=== PATIENT | female | born 1980 | race Caucasian/White ===

== ENCOUNTER 2019-01-10 11:21 | Emergency (ER) | payer SELFPAY ==
[2019-01-10 12:57] LABS: Urine Bacteria <20 /HPF (<20); Urine Culture Reflex Order REFLEXED; Urine RBC <5 /HPF (NONE SEEN)
[2019-01-10 13:23] LABS: Absolute Lymphocytes (CBC) 1.6 K/uL (0.7-4.9); Absolute Monocytes 1.2 K/uL (0.1-1.3); Absolute Neutrophil 6.6 K/uL (1.8-8.0); Basophils % 0.7 % (0-1.3); Eosinophils % 1.9 % (0-4.4); Hematocrit 47.8 % (36.0-45.0); MPV 11.1 fL (7.6-11.3); RBC Red Blood Cell Count 5.08 M/uL (3.86-4.86)
[2019-01-10 13:45] LABS: BUN Blood Urea Nitrogen 7 mg/dL (7-18); Bicarbonate 28 mmol/L (21-32); Glucose Level 91 mg/dL (74-106); Potassium 4.1 mmol/L (3.5-5.1); Sodium Level 138 mmol/L (136-145)
[2019-01-10] MEDS ORDERED: NA CHLORIDE 0.9% 1,000 ML ONE (13:54)
[2019-01-10] MEDS ORDERED: KETOROLAC 30 MG/ML INJ ONE (13:54)
[2019-01-10 14:13] LABS: Urine Blood NEGATIVE (NEG); Urine Glucose NEGATIVE (NEG); Urine Protein NEGATIVE (NEG)
--- NOTE | 2019-01-10 15:23 | RAD REPORT ---
EXAM DESCRIPTION: CT - Abdomen Pelvis W Contrast - 01/10/2019 3:00 pm CLINICAL HISTORY: Abdominal pain, dysuria COMPARISON: CT study August 2016 TECHNIQUE: Biphasic, helical CT imaging of the abdomen and pelvis was performed following 100 ml non -ionic IV contrast. Oral contrast was given. All CT scans are performed using dose optimization technique as appropriate and may include automated exposure control or mA/KV adjustment according to patient size. FINDINGS: No suspicious findings in the lung bases. The liver, spleen, and pancreas show no suspicious findings. Gallbladder and biliary tree are also wi thout suspicious finding. Symmetric renal function is seen with no hydronephrosis or suspicious renal mass. No pyelonephritis o r acute parenchymal process. Urinary bladder is only partially filled which accentuates wall thicknes s. No mass or calculus seen. A mild cystitis cannot be excluded. No adrenal abnormalities. No stomach or small bowel abnormality. Patient does have a few sub centimeter mesenteric lymph nodes. There is a prominent fatty ileocecal valve. The appendix is normal. From cecum through descending co yaz there are no acute findings. Patient has a very prominent sigmoid diverticulosis pattern. Sigmoid or rectal mass are not identified. There is stranding in the lower pelvic fat. High density fluid is present in the cul de sac. This is probably blood. The patient has a 3.8 centimeter left ovarian cys t. Right ovary is unremarkable. No free air or pneumatosis. No other sites of fluid or inflammatory stranding. Very small umbilica l fat only hernia present. No ascites or omental thickening. No bulky lymphadenopathy. No suspicious bony findings. IMPRESSION: Patient has a 3.8 centimeter left ovarian cyst with stranding, fluid and a small amount of blood in the cul-de-sac. Patient has very pronounced for age sigmoid diverticulosis. The fluid, stranding and blood closely ap proximate the distal sigmoid and proximal rectum. Hemorrhagic ovarian cyst rupture or leakage would be favored. Diverticulitis does not typically resul t in intraperitoneal blood. Colon mass is not identified. No pyelonephritis or acute renal parenchymal process. Renal function is prompt and symmetric.
--- NOTE | 2019-01-10 15:37 | EDPHYS ---
Physician Documentation [facility] Name: Veronica Harrington Age: 38 yrs Sex: Female : 1980 Arrival Date: 01/10/2019 Time: 11:24 Bed 16 Private MD: None, None ED Physician Bryan Garza HPI: 01/10 15:34 This 38 yrs old Female presents to ER via Ambulatory with complaints of kb Abdominal Pain, Pain With Urination. 15:34 The patient presents with abdominal pain in the lower abdomen. Onset: The kb symptoms/episode began/occurred today. The symptoms do not radiate. Associated signs and symptoms: none. The symptoms are described as constant. Modifying factors: The symptoms are alleviated by nothing, the symptoms are aggravated by movement. Severity of pain: At its worst the pain was moderate in the emergency department the pain is unchanged. The patient has not experienced similar symptoms in the past. The patient has not recently seen a physician. 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 - Social history:: Smoking status: Patient/guardian denies using tobacco. - Ebola Screening: : No symptoms or risks identified at this time. ROS: 15:33 Constitutional: Negative for fever, chills, and weight loss, Neck: Negative for injury, kb pain, and swelling, Cardiovascular: Negative for chest pain, palpitations, and edema, Respiratory: Negative for shortness of breath, cough, wheezing, and pleuritic chest pain, Back: Negative for injury and pain, : Negative for injury, bleeding, discharge, and swelling, MS/Extremity: Negative for injury and deformity, Skin: Negative for injury, rash, and discoloration, Neuro: Negative for headache, weakness, numbness, tingling, and seizure. 15:33 Abdomen/GI: Positive for abdominal pain. Exam: 15:33 Constitutional: This is a well developed, well nourished patient who is awake, alert, kb and in no acute distress. Head/Face: Normocephalic, atraumatic. ENT: Nares patent. No nasal discharge, no septal abnormalities noted. Tympanic membranes are normal and external auditory canals are clear. Oropharynx with no redness, swelling, or masses, exudates, or evidence of obstruction, uvula midline. Mucous membranes moist. Neck: Trachea midline, no thyromegaly or masses palpated, and no cervical lymphadenopathy. Supple, full range of motion without nuchal rigidity, or vertebral point tenderness. No Meningismus. Chest/axilla: Normal chest wall appearance and motion. Nontender with no deformity. No lesions are appreciated. Cardiovascular: Regular rate and rhythm with a normal S1 and S2. No gallops, murmurs, or rubs. Normal PMI, no JVD. No pulse deficits. Respiratory: Lungs have equal breath sounds bilaterally, clear to auscultation and percussion. No rales, rhonchi or wheezes noted. No increased work of breathing, no retractions or nasal flaring. Back: No spinal tenderness. No costovertebral tenderness. Full range of motion. Skin: Warm, dry with normal turgor. Normal color with no rashes, no lesions, and no evidence of cellulitis. MS/ Extremity: Pulses equal, no cyanosis. Neurovascular intact. Full, normal range of motion. Neuro: Awake and alert, GCS 15, oriented to person, place, time, and situation. Cranial nerves II-XII grossly intact. Motor strength 5/5 in all extremities. Sensory grossly intact. Cerebellar exam normal. Normal gait. 15:33 Abdomen/GI: Inspection: abdomen appears normal, Bowel sounds: normal, in all quadrants, Palpation: soft, in all quadrants, moderate abdominal tenderness, in the right lower quadrant and left lower quadrant. Vital Signs: 11:38 BP 138 / 93; Pulse 88; Resp 16; Temp 97.8; Pulse Ox 100% on R/A; Pain 5/10; hb 12:30 BP 131 / 72; Pulse 91; Resp 17; Pulse Ox 95% ; rb1 13:30 BP 123 / 80; Pulse 83; Resp 19; Pulse Ox 95% on R/A; rb1 14:30 BP 112 / 76; Pulse 67; Resp 16; Pulse Ox 98% on R/A; rb1 15:20 BP 129 / 81; Pulse 65; Resp 17; Pulse Ox 100% on R/A; rb1 16:07 BP 126 / 99; Pulse 67; Resp 17; Pulse Ox 100% ; Pain 2/10; rb1 MDM: 12:25 Patient medically screened. kb 15:33 Data reviewed: vital signs, nurses notes. Data interpreted: Pulse oximetry: on room air kb is 95 %. Interpretation: normal. Counseling: I had a detailed discussion with the patient and/or guardian regarding: the historical points, exam findings, and any diagnostic results supporting the discharge/admit diagnosis, lab results, radiology results, the need for outpatient follow up, an OB/Gyne specialist, to return to the emergency department if symptoms worsen or persist or if there are any questions or concerns that arise at home. 01/10 11:39 Order name: Urine Microscopic Only; Complete Time: 13:00 kb 01/10 12:41 Order name: Basic Metabolic Panel; Complete Time: 13:52 kb 01/10 12:41 Order name: CBC with Diff; Complete Time: 13:28 kb 01/10 12:43 Order name: Urine Dipstick--Ancillary (enter results); Complete Time: 14:14 em 01/10 12:43 Order name: Urine --Ancillary (enter results); Complete Time: 14:14 [facility] 01/10 12:59 Order name: Urine Culture [facility] 01/10 11:39 Order name: Urine Test (obtain specimen); Complete Time: 12:40 kb 01/10 11:39 Order name: Urine Dipstick-Ancillary (obtain specimen); Complete Time: 12:40 kb 01/10 12:41 Order name: IV Saline Lock; Complete Time: 13:38 kb 01/10 12:41 Order name: Labs collected and sent; Complete Time: 13:38 kb 01/10 12:41 Order name: CT Abd/Pelvis - W/Contrast; Complete Time: 15:26 kb Administered Medications: 13:42 Drug: NS 0.9% 1000 ml Route: IV; Rate: 1000 ml; Site: left antecubital; rb1 14:57 Follow up: IV Status: Completed infusion rb1 13:42 Drug: TORadol 30 mg Route: IVP; Site: left antecubital; rb1 14:00 Follow up: Response: No adverse reaction; Pain is decreased rb1 15:47 Drug: Doxycycline 100 mg Route: PO; rb1 16:00 Follow up: Response: No adverse reaction rb1 Disposition: 18:36 Co-signature as Attending Physician, Bryan Garza MD. rn Disposition: 01/10/19 15:36 Discharged to Home. Impression: Other ovarian cysts, Abdominal and pelvic pain. - Condition is Stable. - Discharge Instructions: Pelvic Pain, Female, Attn-sa-Vuyk, Ovarian Cyst, [id number]. - Prescriptions for Doxycycline Hyclate 100 mg Oral Tablet - take 1 tablet by ORAL route every 12 hours; 20 tablet. Diclofenac Sodium 75 mg Oral Tablet, Delayed Release (E.C.) - take 1 tablet by ORAL route 2 times per day As needed; 30 tablet. - Medication Reconciliation Form, Thank You Letter, Antibiotic Education, Prescription Opioid Use form. - Follow up: Emergency Department; When: As needed; Reason: Worsening of condition. Follow up: Private Physician; When: 2 - 3 days; Reason: Recheck today's complaints, Continuance of care, Re-evaluation by your physician. Signatures: Dispatcher [employer] EDMS Sara Childers, TAMRA-C RECOVERY OPERATOR-Bryan Kam MD MD rn Barber, Rebecca, RN RN rb1 Baxter, Heather, RN RN Corrections: (The following items were deleted from the chart) 16:16 15:36 01/10/2019 15:36 Discharged to Home. Impression: Other ovarian cysts; Abdominal rb1 and pelvic pain. Condition is Stable. Forms are Medication Reconciliation Form, Thank You Letter, Antibiotic Education, Prescription Opioid Use. Follow up: Emergency Department; When: As needed; Reason: Worsening of condition. Follow up: Private Physician; When: 2 - 3 days; Reason: Recheck today's complaints, Continuance of care, Re-evaluation by your physician. kb
--- NOTE | 2019-01-10 15:37 | ER ---
Nurse's Notes [facility] Name: Veronica Harrington Age: 38 yrs Sex: Female : 1980 Arrival Date: 01/10/2019 Time: 11:24 Bed 16 Private MD: None, None Diagnosis: Other ovarian cysts;Abdominal and pelvic pain Presentation: 01/10 11:37 Presenting complaint: Patient states: Lower abdominal pain and pain with urination hb since last night. Transition of care: patient was not received from another setting of care. Onset of symptoms was January 10, 2019. Risk Assessment: Do you want to hurt yourself or someone else? Patient reports no desire to harm self or others. Care prior to arrival: None. 11:37 Method Of Arrival: Ambulatory hb 11:37 Acuity: YENNY 3 hb 12:25 Initial Sepsis Screen: Does the patient meet any 2 criteria? No. Patient's initial rb1 sepsis screen is negative. Does the patient have a suspected source of infection? No. Patient's initial sepsis screen is negative. 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 - Social history:: Smoking status: Patient/guardian denies using tobacco. - Ebola Screening: : No symptoms or risks identified at this time. Screenin:25 Abuse screen: Denies threats or abuse. Nutritional screening: No deficits noted. rb1 Tuberculosis screening: No symptoms or risk factors identified. Fall Risk None identified. Assessment: 12:25 General: Appears uncomfortable, Behavior is calm, cooperative, Denies fever. Pain: rb1 Complains of pain in suprapubic area, right lower quadrant and left lower quadrant Pain currently is 6 out of 10 on a pain scale. Neuro: Level of Consciousness is awake, alert, obeys commands, Oriented to person, place, time, situation. Cardiovascular: Capillary refill < 3 seconds is brisk in bilateral fingers. Respiratory: Airway is patent Respiratory effort is even, unlabored, Respiratory pattern is regular, symmetrical. GI: No signs and/or symptoms were reported involving the gastrointestinal system. : Reports pain with urination. Derm: Skin is pink, warm \T\ dry. 13:42 Reassessment: Patient appears in no apparent distress at this time. No changes from rb1 previously documented assessment. Vital Signs: 11:38 BP 138 / 93; Pulse 88; Resp 16; Temp 97.8; Pulse Ox 100% on R/A; Pain 5/10; hb 12:30 BP 131 / 72; Pulse 91; Resp 17; Pulse Ox 95% ; rb1 13:30 BP 123 / 80; Pulse 83; Resp 19; Pulse Ox 95% on R/A; rb1 14:30 BP 112 / 76; Pulse 67; Resp 16; Pulse Ox 98% on R/A; rb1 15:20 BP 129 / 81; Pulse 65; Resp 17; Pulse Ox 100% on R/A; rb1 16:07 BP 126 / 99; Pulse 67; Resp 17; Pulse Ox 100% ; Pain 2/10; rb1 ED Course: 11:24 Patient arrived in ED. sb2 11:24 None, None is Private Physician. sb2 11:26 [facility] Childers F[facility]-C [facility]. kb 11:26 Bryan Garza MD is Attending Physician. kb 11:38 Triage completed. hb 11:38 Arm band placed on. hb 12:25 Patient has correct armband on for positive identification. Bed in low position. Call rb1 light in reach. Side rails up X 1. Pulse ox on. NIBP on. 12:49 Kiara Roberts, RN is Primary Nurse. rb1 13:30 Inserted saline lock: 22 gauge in left antecubital area, using aseptic technique. Blood rb1 collected. 14:59 CT completed. Patient tolerated procedure well. Patient moved to CT via wheelchair. vr Patient moved back from CT. 15:01 CT Abd/Pelvis - W/Contrast In Process Unspecified. EDMS 16:05 No provider procedures requiring assistance completed. IV discontinued, intact, rb1 bleeding controlled, No redness/swelling at site. Pressure dressing applied. Administered Medications: 13:42 Drug: NS 0.9% 1000 ml Route: IV; Rate: 1000 ml; Site: left antecubital; rb1 14:57 Follow up: IV Status: Completed infusion rb1 13:42 Drug: TORadol 30 mg Route: IVP; Site: left antecubital; rb1 14:00 Follow up: Response: No adverse reaction; Pain is decreased rb1 15:47 Drug: Doxycycline 100 mg Route: PO; rb1 16:00 Follow up: Response: No adverse reaction rb1 Outcome: 15:36 Discharge ordered by . valerie 16:05 Discharged to home ambulatory, with family. rb1 16:05 Condition: stable 16:05 Discharge instructions given to patient, Instructed on discharge instructions, follow up and referral plans. medication usage, Demonstrated understanding of instructions, follow-up care, medications, Prescriptions given X 2. 16:05 Patient left the ED. rb1 Signatures: Dispatcher [employer] EDMS Sara Childers, ENGINE REPAIR SUPERVISOR-C ENGINE REPAIR SUPERVISOR-Emma Coleman Rebecca, RN RN rb1 Edith Fallon, JASON RN Jennifer Larsen sb2 Corrections: (The following items were deleted from the chart) 16:07 16:00 BP 129 / 81; Pulse 65bpm; Resp 17bpm; Pulse Ox 100% RA; rb1 rb1 16:17 16:16 Patient left the ED. rb1 rb1
[2019-01-10] MEDS ORDERED: DOXYCYCLINE 100 MG CAP PO ONE (15:54)
== END 2019-01-10 16:16 | disposition home or self-care (01) ==
LOC: ER 11:21
DX: N83.299 Other ovarian cyst, unspecified side (principal); Z88.8 Allergy status to other drugs, medicaments and biological substances
CPT/HCPCS: 36415; 74177; 80048; 81003; 81015; 81025; 85025; 87086; 87088; 96361; 96374; 99284; J7030; Q9967

== ENCOUNTER 2025-09-23 11:59 | Emergency (ER) | payer SELFPAY ==
--- NOTE | 2025-09-23 14:55 | RAD REPORT ---
EXAMINATION: Facial Bones W Con Mpr CLINICAL INDICATION: Female, 45 years old. Swelling;Pain TECHNIQUE: Axial images were obtained through the facial bones and orbits with intravenous contrast. Sagittal and coronal reconstructions were created from the data. One or more of the following dose reduction techniques were used: Automated exposure control, adjustment of the mA and/or kV according to patient size, and/or iterative reconstruction. Unless otherwise specified, incidental findings do not require dedicated imaging follow-up. [id number]. COMPARISON: No prior exams FINDINGS: SOFT TISSUE: Left facial swelling and skin thickening. Preseptal skin thickening. BONES: No fracture identified. Multiple dental caries including involving the remaining teeth. Small abscess identified along the left anterior maxilla measuring 21 x 4 mm. This is just anterior to the left maxillary sinus. This may be arising from a remote fragment of a left upper maxillary molar ORBITS: The globes are intact. No intraorbital hemorrhage or mass. SINUSES: Left maxillary sinus mucous cyst. BRAIN: No acute abnormalities in the visualized intracranial structures. IMPRESSION: Small left facial abscess along and anterior to the left maxilla, possibly arising from a root fragme nt from a left maxillary molar. Left facial cellulitis.
[2025-09-23 15:05] LABS: ALT/SGPT 60.0 U/L (13-56); AST/SGOT 32.0 U/L (15-37); Absolute Lymphocytes (CBC) 1.3 K/uL (0.7-4.9); Albumin 3.3 g/dL (3.4-5.0); Albumin/Globulin Ratio 0.7 (1.1-1.8); Alkaline Phosphatase 113.0 U/L (45-117); Anion Gap 8.5 mEq/L (5.0-15.0); BUN Blood Urea Nitrogen 5.0 mg/dL (7-18); Globulin 4.6 g/dL (2.3-3.5); Glucose Level 107.0 mg/dL (74-106); Hematocrit 46.4 % (36.0-45.0); Hemoglobin 15.9 g/dL (12.0-15.0); MCH 32.8 pg (27.0-35.0); MCHC 34.2 g/dL (32.0-36.0); MCV 95.8 fL (80-100); MPV 9.3 fL (7.6-11.3); Nucleated RBC Absolute Count 0.0 (0-0); Nucleated Red Blood Cells % 0.0 % (0-0); Potassium 4.5 mEq/L (3.5-5.1); RBC Red Blood Cell Count 4.85 M/uL (3.86-4.86); White Blood Count 9.90 thou/uL (4.3-10.9)
[2025-09-23] MEDS ORDERED: ONDANSETRON 4 MG/2 ML VIAL ONE (15:49)
[2025-09-23] MEDS ORDERED: FENTANYL CITR 100 MCG/2 ML ONE (15:49)
[2025-09-23] MEDS ORDERED: NA CHLORIDE 0.9% 1,000 ML ONE (15:51)
[2025-09-23] MEDS ORDERED: AMPICILLIN/SULBACTAM 3GM/VIAL ONE (16:01)
[2025-09-23] MEDS ORDERED: NA CHLORIDE 0.9% 100 ML ONE (16:01)
--- NOTE | 2025-09-23 16:02 | EDPHYS ---
Physician Documentation [facility] Name: Veronica Harrington Age: 45 yrs Sex: Female : 1980 Arrival Date: 09/23/2025 Time: 11:59 Bed 8 Private MD: ED Physician Joshua Fleming HPI: 09/23 18:01 This 45 yrs old Female presents to ER via Ambulatory with complaints of dr5 Facial Swelling, Toothache. 18:01 Onset: The symptoms/episode began/occurred yesterday. Patient is a 45-year-old female dr5 with no past medical history coming in with mild left facial pain. Patient reports she has dental appointment on Friday and has been recently started on clindamycin with mild improvement. Patient denies difficulty speaking, handling secretions, or trismus.. 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 - Infectious Disease History:: Denies. - Social history:: Smoking status: Patient reports the use of cigarette tobacco products, smokes one pack cigarettes per day. ROS: 18:01 Constitutional: as per hpi dr5 Exam: 18:01 Constitutional: This is a well developed, well nourished patient who is awake, alert, dr5 and in no acute distress. Head/Face: Normocephalic, atraumatic. Tenderness to palpation of left face with no obvious swelling noted. Eyes: Pupils equal round and reactive to light, extra-ocular motions intact. Lids and lashes normal. Conjunctiva and sclera are non-icteric and not injected. Cornea within normal limits. Periorbital areas with no swelling, redness, or edema. ENT: Nares patent. No nasal discharge, no septal abnormalities noted. Tympanic membranes are normal and external auditory canals are clear. Oropharynx with no redness, swelling, or masses, exudates, or evidence of obstruction, uvula midline. Mucous membranes moist. Chest/axilla: Normal chest wall appearance and motion. Nontender with no deformity. No lesions are appreciated. Cardiovascular: Regular rate and rhythm with a normal S1 and S2. Normal PMI, no JVD. No pulse deficits. Respiratory: Lungs have equal breath sounds bilaterally, clear to auscultation. No rales, rhonchi or wheezes noted. No increased work of breathing, no retractions or nasal flaring. Abdomen/GI: Soft, non-tender, non-distended Back: No spinal tenderness. No costovertebral tenderness. Full range of motion. Skin: Warm, dry with normal turgor. Normal color with no rashes, no lesions, and no evidence of cellulitis. MS/ Extremity: Pulses equal, no cyanosis. Neurovascular intact. Full, normal range of motion. Neuro: Awake and alert, GCS 15, oriented to person, place, time, and situation. Cranial nerves II-XII grossly intact. Motor strength 5/5 in all extremities. Sensory grossly intact. Cerebellar exam normal. Normal gait. 18:01 ENT: Dental exam: cellulitis, that is mild, specifically in the upper left central incisor (#9), upper left lateral incisor (#10), upper left cuspid (#11) and upper left first bicuspid (#12), dental caries, that is mild, specifically in the upper left lateral incisor (#10), upper left cuspid (#11), upper left first bicuspid (#12) and upper left second bicuspid (#13), gum swelling, that is mild, Vital Signs: 13:35 BP 163 / 110; Pulse 84; Resp 18; Temp 98; Pulse Ox 100% ; Weight 81.65 kg; Height 5 ft. me1 3 in. ; Pain 7/10; 16:31 BP 155 / 77; Pulse 78; Resp 16; Pulse Ox 98% on R/A; ap3 17:11 BP 149 / 82; Pulse 94; Resp 16; Pulse Ox 99% on R/A; ap3 13:35 Body Mass Index 31.89 (81.65 kg, 160.02 cm) me1 13:35 Pain Scale: Adult me1 MDM: 12:03 Medical Screening Exam initiated dr5 18:01 Differential diagnosis: viral Infection, bacterial infection, Dental caries, dental dr5 abscess. Data reviewed: vital signs, nurses notes, lab test result(s), CBC, white blood cell count, hemoglobin, hematocrit, platelets, electrolytes, sodium, potassium, chloride, serum bicarbonate, BUN, creatinine, serum glucose, radiologic studies, CT scan. Consideration of Admission/Observation Escalation of care including admission/observation considered. Escalation considered patient found to have extensive left facial abscess into deep spaces of face.. I considered the following discharge prescriptions or medication management in the emergency department I discussed and recommended Over The Counter medications, Medications were administered in the Emergency Department. See MAR. Care significantly affected by the following Social Determinants of Health: Poor access to healthcare and/or lack of insurance, Poor access to transportation, Problems related to employment. Counseling: I had a detailed discussion with the patient and/or guardian regarding the historical points, exam findings, and any diagnostic results supporting the discharge/admit diagnosis, the presence of at least one elevated blood pressure reading (>120/80) during this emergency department visit, lab results, radiology results, the need for outpatient follow up, for definitive care, a dentist, a family practitioner, to return to the emergency department if symptoms worsen or persist or if there are any questions or concerns that arise at home. Medication response: Fentanyl, Unasyn. Response to treatment: the patient's symptoms have resolved after treatment. Special discussion: I discussed with the patient/guardian in detail that at this point there is no indication for admission to the hospital. It is understood, however, that if the symptoms persist or worsen the patient needs to return immediately for re-evaluation. Based on the history and exam findings, there is no indication for further emergent testing or inpatient evaluation. I discussed with the patient/guardian the need to see a dentist for further evaluation of the symptoms. ED course: Patient has appointment next Friday. Unasyn IV given. Will have patient follow-up with dentist on Friday for further management. All question answered. Patient is currently 10 clindamycin. Will have patient continue taking it. All question answered. Strict ER precautions given. 09/23 13:45 Order name: CBC with Diff; Complete Time: 15:13 dr5 09/23 13:45 Order name: CMP; Complete Time: 15: dr5 09/23 14:36 Order name: Facial Bones W Con ; Complete Time: 14:57 EDMS Administered Medications: 16:11 Drug: NS 0.9% IV 1000 ml IV at 1000 ml once; to be given as a bolus over 60 minutes ap3 Route: IV; Rate: 1000 ml; Site: right antecubital; 17:46 Follow up: IV Status: Completed infusion; IV Intake: 1000ml ap3 16:12 Drug: Ampicillin-Sulbactam Sodium IVPB 3 grams IVPB once over 30 mins; (mix in 100 mL ap3 NS) Route: IVPB; Infused Over: 30 mins; Site: right antecubital; 17:46 Follow up: IV Status: Completed infusion; IV Intake: 100ml ap3 16:12 Not Given (Patient Refused): fentanyl (pf)50 mcg IVP once ap3 16:12 Not Given (Patient Refused): ondansetron 4 mg IVP once; over 2 minutes ap3 Disposition Summary: 09/23/25 17:16 Discharge Ordered Notes: Location: Home(09/23/25 17:16) dr5 Condition: Stable(09/23/25 17:16) dr5 Diagnosis - Dental root caries(09/23/25 17:16) dr5 Followup: dr5 - With: Emergency Department - When: As needed - Reason: Worsening of condition Followup: dr5 - With: Private Physician - When: 1 - 2 days - Reason: Recheck today's complaints, Continuance of care, Re-evaluation by your physician Discharge Instructions: - Discharge Summary Sheet dr5 - Dental Abscess dr5 Forms: - Medication Reconciliation Form dr5 - Antibiotic Education dr5 - Prescription Opioid Use dr5 - Patient Portal Instructions dr5 - Leadership Thank You Letter dr5 Prescriptions: - Augmentin 875-125 mg Oral Tablet - take 1 tablet ORAL route every 12 hours for 10 days; 20 tablet; Refills: 0, dr5 Product Selection Permitted - Tramadol 50 mg Oral Tablet - take 1 tablet ORAL route every 8 hours as needed; 12 tablet; Refills: 0, dr5 Product Selection Permitted Signatures: Dispatcher [employer] Shanti Fuentes RN RN ap3 Marisa Sanchez RN RN me1 Mannie Vivar, UNDERBASTER-C UNDERBASTER-Cdr5 Corrections: (The following items were deleted from the chart) 14:36 13:46 Maxillofacial W/Cont+CT.RAD.BRZ ordered. EDMS EDMS 16:09 16:02 Home dr5 dr5 16:09 16:02 Stable dr5 dr5 16:09 16:02 Dental root caries dr5 dr5
--- NOTE | 2025-09-23 16:02 | ER ---
Nurse's Notes [facility] Name: Veronica Har[facility] Age: 45 yrs Sex: Female : 1980 Arrival Date: 09/23/2025 Time: 11:59 Bed 8 Private MD: Diagnosis: Dental root caries Presentation: 09/23 13:35 Chief complaint: Patient states: saw dentist yesterday for left upper molar abscess, me1 started clindamycin 300 mg QID at noon yesterday. Swelling to left face is worse today. Sent to ER by dentist. Pain 7/10 to left mouth, face and ear. Coronavirus screen: Vaccine status: Patient reports being unvaccinated. Ebola Screen: No symptoms or risks identified at this time. Initial Sepsis Screen: Does the patient meet any 2 criteria? No. Patient's initial sepsis screen is negative. Does the patient have a suspected source of infection? No. Patient's initial sepsis screen is negative. Risk Assessment: Do you want to hurt yourself or someone else? Patient reports no desire to harm self or others. Onset of symptoms was September 21, 2025. 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 - Infectious Disease History:: Denies. - Social history:: Smoking status: Patient reports the use of cigarette tobacco products, smokes one pack cigarettes per day. Screenin:14 [facility] ED Fall Risk Assessment (Adult) History of falling in the last 3 months, ap3 including since admission No falls in past 3 months (0 pts) Confusion or Disorientation No (0 pts) Intoxicated or Sedated No (0 pts) Impaired Gait No (0 pts) Mobility Assist Device Used No (0 pt) Altered Elimination No (0 pt) Score/Fall Risk Level 0 - 2 = Low Risk Oriented to surroundings, Maintained a safe environment, Educated pt \T\ family on fall prevention, incl call for assistance when getting out of bed, Assessed \T\ reinforced patient's understanding of fall precautions, Hourly rounding (assess needs \T\ fall precautionary measures) done, Used ambulatory aids as needed (educated on \T\ assisted with). Abuse screen: Denies threats or abuse. Nutritional screening: No deficits noted. Tuberculosis screening: No symptoms or risk factors identified. Assessment: 16:13 General: Appears in no apparent distress. Behavior is calm, cooperative, appropriate ap3 for age. Pain: Complains of pain in left cheek, mouth and left jaw. Neuro: Level of Consciousness is awake, alert, obeys commands, Oriented to person, place, time, situation, Appropriate for age. Cardiovascular: Patient's skin is warm and dry. Respiratory: Airway is patent Respiratory effort is even, unlabored, Respiratory pattern is regular, symmetrical. EENT: Reports pain in left cheek, mouth and left jaw. Vital Signs: 13:35 BP 163 / 110; Pulse 84; Resp 18; Temp 98; Pulse Ox 100% ; Weight 81.65 kg; Height 5 ft. me1 3 in. ; Pain 7/10; 16:31 BP 155 / 77; Pulse 78; Resp 16; Pulse Ox 98% on R/A; ap3 17:11 BP 149 / 82; Pulse 94; Resp 16; Pulse Ox 99% on R/A; ap3 13:35 Body Mass Index 31.89 (81.65 kg, 160.02 cm) me1 13:35 Pain Scale: Adult me1 ED Course: 12:03 Patient arrived in ED. al6 12:03 [facility] 12:03 Joshua Fleming MD is Attending Physician. dr5 13:37 Triage completed. me1 13:37 Arm band placed on Patient placed in waiting room. me1 14:40 Facial Bones W Con In Process Unspecified. EDMS 14:40 CMP Sent. bc6 14:40 CBC with Diff Sent. bc6 14:41 Initial lab(s) drawn, by ED staff, sent to lab. Inserted saline lock: 22 gauge in right bc6 antecubital area, using aseptic technique. Blood collected. Flushed with 10 mL NS. 14:41 Test, Urine Sent. bc6 14:41 UA Rfx Jason Cult if indicated Sent. bc6 16:13 Shanti Molina, JASON is Primary Nurse. ap3 16:31 Patient has correct armband on for positive identification. Bed in low position. Call ap3 light in reach. Side rails up X 1. Provided Education on: medication prior to administration . Pulse ox on. NIBP on. 17:46 No provider procedures requiring assistance completed. IV discontinued, intact, ap3 bleeding controlled, No redness/swelling at site. Pressure dressing applied. Administered Medications: 16:11 Drug: NS 0.9% IV 1000 ml IV at 1000 ml once; to be given as a bolus over 60 minutes ap3 Route: IV; Rate: 1000 ml; Site: right antecubital; 17:46 Follow up: IV Status: Completed infusion; IV Intake: 1000ml ap3 16:12 Drug: Ampicillin-Sulbactam Sodium IVPB 3 grams IVPB once over 30 mins; (mix in 100 mL ap3 NS) Route: IVPB; Infused Over: 30 mins; Site: right antecubital; 17:46 Follow up: IV Status: Completed infusion; IV Intake: 100ml ap3 16:12 Not Given (Patient Refused): fentanyl (pf)50 mcg IVP once ap3 16:12 Not Given (Patient Refused): ondansetron 4 mg IVP once; over 2 minutes ap3 Medication: 16:31 VIS not applicable for this client. ap3 Intake: 17:46 IV: 1000ml; Total: 1000ml. ap3 17:46 IV: 100ml; Total: 1100ml. ap3 Outcome: 16:02 Discharge ordered by MD. dr5 17:16 Discharge ordered by MD. dr5 17:46 Discharged to home ambulatory, ap3 17:46 Condition: good 17:46 Discharge instructions given to patient, Instructed on discharge instructions, follow up and referral plans. medication usage, Demonstrated understanding of instructions, follow-up care, medications, Prescriptions given X 2, 17:46 Patient left the ED. ap3 Signatures: Dispatcher [employer] Shanti Fuentes RN RN ap3 Blanche Walters6 Marisa Sanchez RN RN me1 Mannie Vivar, FARM MANAGEMENT AGENT-C FARM MANAGEMENT AGENT-Cdr5 Kim Craig6
[2025-09-23 22:04] VITALS: TEMP 98
[2025-09-23 22:15] VITALS: BP 149/82; O2SAT 99
== END 2025-09-23 17:46 | disposition home or self-care (01) ==
LOC: ER 11:59
DX: K02.7 Dental root caries (principal)
CPT/HCPCS: 36415; 70487; 76377; 80053; 85025; 96365; 96366; 99284; J0295; J2405; J3010; J7030; Q9967